=== PATIENT | female | born 1955 | race Caucasian/White ===

== ENCOUNTER 2019-05-31 08:00 | Outpatient (CLI) | payer BC ==
[2014-12-26 08:28] VITALS: BMI 22.7
[~2019-05-31 08:00] MED LIST: ESTRACE1 MG PO
== END 2019-05-31 23:59 | disposition home or self-care (01) ==
LOC: D.MAMMO 08:00
PROVIDERS: ATTEND Family Medicine
DX: Z12.31 Encounter for screening mammogram for malignant neoplasm of breast (principal)

== ENCOUNTER 2019-06-22 08:00 | Outpatient (CLI) | payer BC ==
[2014-12-26 08:28] VITALS: BMI 22.7
== END 2019-06-22 23:59 | disposition home or self-care (01) ==
LOC: D.MAMMO 08:00
PROVIDERS: ATTEND Family Medicine
DX: R92.8 Other abnormal and inconclusive findings on diagnostic imaging of breast (principal)